=== PATIENT | male | born 1965 | race Caucasian/White ===

== ENCOUNTER 2023-12-30 18:29 | Emergency (ER) | payer OTHER ==
[~2023-12-30] VITALS: Ht 172.7 cm; Wt 74.8 kg
[2023-12-30 19:23] VITALS: BP 117/77; PULSE 74; RESP 16; TEMP 97.4
[2023-12-30] MEDS: KETOROLAC 30 MG/ML VIAL IM ONE (21:08)
[2023-12-30] MEDS: methocarbamoL 500 MG TAB PO STA (21:08)
[2023-12-30] MEDS: LIDOCAINE 5% 1 EA PATCH TP ONE (21:09)
[2023-12-30] MEDS ORDERED: LID5T TP (21:41)
[2023-12-30] MEDS ORDERED: NAPR-1704 PO (21:41)
[2023-12-30] MEDS ORDERED: METH-1681 PO (21:41)
[2023-12-30 21:52] VITALS: BP 117/77; PULSE 74; RESP 16; TEMP 97.4
[2023-12-31 12:04] VITALS: O2SAT 98
== END 2023-12-30 21:52 | disposition home or self-care (01) ==
LOC: MED 18:29
DX: S23.3XXA Sprain of ligaments of thoracic spine, initial encounter (principal); I10 Essential (primary) hypertension; Z79.1 Long term (current) use of non-steroidal anti-inflammatories (NSAID); Z79.899 Other long term (current) drug therapy; X58.XXXA Exposure to other specified factors, initial encounter; Y93.9 Activity, unspecified; Y92.89 Other specified places as the place of occurrence of the external cause; Y99.8 Other external cause status
CPT/HCPCS: 71045; 96372; 99283; J1885